=== PATIENT | male | born 1980 | race Caucasian/White ===

== ENCOUNTER → 2017-03-26 | Outpatient (CLI) | payer MEDICAID ==
[~2017-03-26] MED LIST: CIPRO 500MG TA500 MG PO; CLONAZEPAM 1MG T1 MG PO; HYDROCODONE-APA1 TA1 PO; HYDROCODONE1 TABLET PO; LISINOPRIL20 MG PO; MEDROL 4MG. DOSE4 MG PO; NORCO 325 MG-51 TAB PO; PERCOCET 5/3251 EACH PO; PROZAC 20MG CAP20 MG PO
[2017-03-26 11:29] LABS: LYMPH # 1.5 K/mm3 (0.7-4.5); LYMPH % 23.8 % (10-50)
[2017-03-26 11:31] LABS: HEMOGLOBIN 16.4 g/dL (14.1-18.0)
[2017-03-26 12:57] LABS: BUN 13 mg/dL (7-18)
[2017-03-26 13:08] LABS: GFR (ESTIMATED) 84 ML/MIN (>60)
[2017-03-27 08:41] LABS: HBsAg Screen Negative (Negative); HIV Screen 4th Generation wRfx Non Reactive (Non Reactive); Hep A Ab, IgM Negative (Negative); Hep B Core Ab, IgM Negative (Negative); Hep C Virus Ab >11.0 (0.0-0.9)
[2017-03-29 03:35] LABS: Hepatitis C Genotype 3 (.)
== END ==
LOC: LAB 10:56
PROVIDERS: Nurse Practitioner Family
DX: F32.9 Major depressive disorder, single episode, unspecified (principal); Z00.00 Encounter for general adult medical examination without abnormal findings
CPT/HCPCS: G0432